=== PATIENT | female | born 1985 | race African-American/Black ===

== ENCOUNTER 2018-09-28 13:08 | Inpatient (IN) ==
[2018-09-28] MEDS ORDERED: DUONEB (A & A) INH ONE ×2 (15:34→17:46)
[2018-09-28 15:49] LABS: BASO# 0.02 X1000 (0.0-0.2); BASO% 0.2 % (0.0-0.8); EOS# 0.12 X1000 (0.0-0.7); EOS% 1.1 % (0.0-10.0); HEMATOCRIT 39.6 % (37.0-47.0); HEMOGLOBIN 13.2 g/dL (12.0-16.0); IMM GRAN# 0.01 X1000 (0.0-0.04); IMM GRAN% 0.1 % (0.0-0.5); LYMPH# 1.47 X1000 (1.2-3.4); LYMPH% 13.7 % (20.5-51.1); MCH 31.4 PG (27-31); MCHC 33.3 g/dL (33-37); MCV 94.1 FL (81-99); MONO# 0.72 X1000 (0.11-0.59); MONO% 6.7 % (1.7-9.3); MPV 10.1 FL (7.4-10.4); NEUT# 8.37 X1000 (1.4-6.5); NEUT% 78.2 % (42.2-75.2); PLT 258 X1000 (130-400); RBC 4.21 XMIL (4.2-5.4); RDW 12.8 % (11.5-14.5); WBC 10.71 X1000 (4.8-10.8)
[2018-09-28 16:06] LABS: AGAP 11; ALBUMIN 4.1 g/dL (3.5-5.0); ALKALINE PHOSPHATASE 107 U/L (32-104); BUN 5 mg/dL (8-22); CALCIUM 8.8 mg/dL (8.8-10.2); CHLORIDE 98 mmol/L (98-107); COSMO 279; CREATININE 0.6 mg/dL (0.5-0.9); ESTIMATED GFR > 60; GLUCOSE 245 mg/dL (70-104); GOT 13 U/L (10-30); GPT 13 U/L (10-36); POTASSIUM 3.7 mmol/L (3.5-5.1); SODIUM 137 mmol/L (136-145); TCO2 28 mmol/L (25-35); TOTAL PROTEIN 7.2 g/dL (6.3-8.3)
--- NOTE | 2018-09-28 16:11 | Diag Imaging Result Doc PS360 ---
CHEST-2 VIEWS - 09/28/2018 INDICATION: cough COMPARISON: 05/17/2015 FINDINGS: The lungs are normally expanded and clear. Heart size and mediastinal contours are normal. No pneumothorax or pleural effusion. IMPRESSION: Negative exam. Electronically signed by Cale Pulido 09/28/2018 4:09 PM
--- NOTE | 2018-09-28 16:12 | Diag Imaging Result Doc PS360 ---
SINUSES SUE VIEW ONLY - 09/28/2018 INDICATION: cough TECHNIQUE: COMPARISON: None FINDINGS: The sinuses are clear. Mastoids are clear as well. IMPRESSION: Negative exam. Electronically signed by Cale Pulido 09/28/2018 4:10 PM
[2018-09-28 17:00] LABS: BLOOD TYPE ARTERIAL; SAMPLE BLOOD
[2018-09-28 17:01] LABS: BE 3.9 mmoll (-3.0-3.0); HCO3-(ACT) 27.7 mmoll (20.0-26.0); METHB 1.1 % (0.0-1.5); O2(CT) 17.3 mL/dL (15.0-23.0); PCO2(98.6) 42 mmHg (35-45); PO2(98.6) 55 mmHg (60-100); SAO2 91.7 % (95.0-100.0); THB 13.9 g/dL (11.5-17.4); pH(98.6) 7.44 (7.35-7.45)
[2018-09-28 17:03] LABS: ALLEN TEST YES; MODALITY ROOM AIR; O2HB 88.5 % (95.0-99.0)
[2018-09-28 17:50] LABS: INFLUENZA A NEGATIVE (NEGATIVE); INFLUENZA B NEGATIVE (NEGATIVE)
[2018-09-28 18:45] LABS: BILIRUBIN URINE NEGATIVE (NEGATIVE); BLOOD URINE NEGATIVE (NEGATIVE); KETONE URINE 1+(Small) mg/dL (NEGATIVE); LEUKOCYTES URINE TRACE (NEGATIVE); NITRITE URINE NEGATIVE (NEGATIVE); PH URINE 6.5; PROTEIN URINE TRACE mg/dL (NEGATIVE); SP GRAVITY URINE 1.015; UROBILINOGEN URINE 4 mg/dL
[2018-09-28 18:46] LABS: CLARITY SL. CLOUDY (CLEAR); COLOR YELLOW; URINE BACTERIA 1+ /HFP; URINE EPITHELIAL CELLS >10 /HPF (<10)
[2018-09-28 18:47] LABS: URINE CAST NONE SEEN /LPF; URINE CRYSTAL NONE SEEN /HPF; URINE SOURCE CLEAN CATCH; URINE WBC <10 /HPF (<10); URINE YEAST NONE SEEN /HPF
--- NOTE | 2018-09-28 18:58 | PROVIDER DOCUMENTATION ---
This chart was entered by Judi Arrieta Scribe, acting as scribe for Jin Copeland MD. HPI-General Adult - General Chief Complaint: Cold Symptoms Stated Complaint: BODY ACHE Time Seen by Provider: 09/28/18 15:32 Source: patient Allergies/Adverse Reactions: Patient Allergies Allergy/AdvReac Type Severity Reaction Status Date / Time Penicillins AdvReac RASH Verified 09/24/15 20:23 Home Medications: Home Medication List Medication Instructions Recorded Confirmed Last Taken Type Clindamycin [Cleocin] 150 mg PO Q6HR #30 capsule 01/28/16 Unknown Rx Sulfamethoxazole/Trimethoprim 1 each PO BID #14 tablet 01/28/16 Unknown Rx [Bactrim Ds Tablet] Metformin [Glucophage] 1,000 mg PO WBREAKFAST #30 tablet 10/07/16 Unknown Rx Nitrofurantoin [place]/Macrocryst 100 mg PO BID #14 capsule 10/07/16 Unknown Rx [Macrobid] Sulfamethoxazole/Trimethoprim 1 each PO BID #10 tablet 10/07/16 Unknown Rx [Bactrim Ds Tablet] - History of Present Illness -Gen Adult Nature of Presenting Problems: 32yof presents to ED cc cough w/green & yellow mucous production, fever, body aches, SOB and congestion for 3 days that is getting worse. Pt denies N/V/D. Pt has hx of DM. Pt is nontoxic in appearance. Location of Pain/Injury: reports: generalized Pain Radiation: reports: no radiation Quality of Pain: reports: aching, pressure Severity: reports: moderate Onset/Duration: reports: 3 days ago Timing: reports: still present, constant, changing over time Context/Activities at Onset: reports: light activity Modifying Factors: improves with: nothing Associated Symptoms: reports: cough, fever/chills, muscle aches, sinus kodi estion/drainage, shortness of breath Similar Symptoms Previously?: No Recently seen or treated by another doctor?: No Review of Systems - Adult - REVIEW OF SYSTEMS - ADULT Constitutional: reports: see HPI, chills, fever, fatique. denies: weight gain, weight loss Eyes: reports: no symptoms reported Ears, Nose, Mouth & Throat: reports: see HPI, sinus problem, hoarseness. denies: ear pain, throat pain Cardiovascular: reports: no symptoms reported Respiratory: reports: see HPI, cough, shortness of breath, wheezing Gastrointestinal: reports: no symptoms reported Genitourinary: reports: no symptoms reported Musculoskeletal: reports: no symptoms reported Integumentary: reports: no symptoms reported Neurological: reports: no symptoms reported Psychiatric: reports: no symptoms reported Endocrine: reports: no symptoms reported Hematologic/Lymphatic: reports: no symptoms reported Allergic/Immunologic: reports: no symptoms reported All Other Systems: Reviewed and Negative Past History - Adult - PAST MEDICAL HISTORY-ADULT Review of Records: reports: Nursing Assessment Review, Medications Reviewed, Social history reviewed & non-contributory. Major Childhood Illnesses: reports: denies history Cardiovascular: reports: HTN Respiratory: reports: denies history Gastrointestinal: reports: denies history Obstetrical/Gynecological: reports: denies history Genitourinary: reports: denies history Musculoskeletal: reports: denies history Neurological: reports: denies history Endocrine/Immune: reports: Diabetes Other Conditions: reports: denies history - PRIOR SURGERIES/PROCEDURES Surgical/Procedure History: reports: - PRIOR HOSPITALIZATIONS Prior Hospitalizations: reports: none - IMMUNIZATION STATUS Childhood Immunizations: See Nurse Assessment Flu Vaccine: See Nurse Assessment - FAMILY HISTORY Family History: reviewed, not pertinent Physical Exam-General - PHYSICAL EXAM-ADULT Initial Vital Signs Reviewed: Yes - CONSTITUTIONAL General Appearance: appears well, alert, no apparent distress, obese. negative: anxious, combative - EYES Eyes: PERRL/EOMI, pink conjunctivae. negative: meningismus, pale conjunctivae, photophobia - HEAD, EARS, NOSE, MOUTH & THROAT HENMT: normocephalic/atraumatic, moist mucous membranes, TMs normal, pharynx normal, frontal tenderness. negative: angioedema, dental decay, hearing deficit, pharyngeal erythema, tonsillar exudate - NECK Neck: non-tender, full range of motion, supple, normal inspection. negative: C- spine tenderness - RESPIRATORY Respiratory: chest non-tender, no pleuratic chest pain, no respiratory distress, no accessory muscle use, decreased breath sounds (bilaterally at bases), wheezing (bilaterally). negative: lungs clear, normal breath sounds, crackles, rales, rhonchi, stridor - CARDIOVASCULAR Cardiovascular: normal peripheral pulses, regular rate, rhythm, no edema, no gallop, no JVD, no murmur. negative: bradycardia, tachycardia - GASTROINTESTINAL (ABDOMEN) Abdominal Exam: normal bowel sounds, non tender, soft, no organomegaly, no pulsatile mass. negative: distended, guarding, rigid, rebound, tenderness, hernia, mass - LYMPHATIC Lymphatic: no adenopathy. negative: enlargement, striations, streaking - MUSCULOSKELETAL Back Exam: normal inspection, no CVA tenderness, no vertebral tenderness. negative: ecchymosis, kyphosis, swelling Extremity: normal range of motion, non-tender, normal gait, normal inspection, no pedal edema, no calf tenderness, normal capillary refill, pelvis stable. negative: deformity, erythema, swelling - SKIN Integumentary: normal turgor, warm/dry, other (acanthrosis). negative: cyanosis, diaphoresis, erythema, jaundice - NEUROLOGIC Neurologic: radiation protection specialist II-XII nml as tested, grossly normal, no motor/sensory deficits. negative: facial droop, focal weakness - PSYCHIATRIC Psych/Mental Status: normal mood/affect, normal thought content, normal thought process, oriented x 3. negative: disoriented x 3, anxious, disheveled, d epressed affect Progress - PLAN OF CARE/RESULTS Progress/Plan/Lab Results: Vital Signs - 8 hr 09/28/18 13:37 Temperature 99.4 F Pulse Rate 105 H Respiratory Rate 20 Blood Pressure 120/80 O2 Sat by Pulse Oximetry 95 Result Diagrams: 09/28/18 13:35 09/28/18 13:35 - XRAY 1 XRAY Study: other (water's view) Impression: See EMR Report (IMPRESSION: Negative exam. Electronically signed by Cale Pulido 09/28/2018 4:10 PM) 2 XRAY: Bilateral XRAY Study: Chest Impression: See EMR Report (IMPRESSION: Negative exam. Electronically signed by Cale Pulido 09/28/2018 4:09 PM) Departure - Departure Date of Disposition Decision: 09/28/18 Time of Disposition Decision: 18:49 DIAGNOSIS: Respiratory failure, Morbid obesity Disposition: ADMITTED INPATIENT 09 Certified Medical Emergency: Emergent Condition: Stable Additional Freetext Instructions: ED Follow Up Instructions: You have been treated by a care provider in the Emergency Department. These instructions are being provided to you so you can have an understanding of how to care for yourself upon discharge. Upon discharge from the Emergency Department, you are responsible for making arrangements for follow-up care by a physician of your choice. Take all prescribed medications as directed. Return to the Emergency Department immediately for any new or worsening symptoms. You may call the Physician Referral phone number at [phone] to obtain a list of Physicians who are taking new patients. Referrals and Follow-Ups: None,PCP [Primary Care Provider] - - Critical Care Note This patient required my direct & personal management of CC.: No Attestation - Physician/ ALESSIA Attestation Patient care was provided by Advanced Practice Provider:: No The physician spent face to face time with patient:: Yes Advanced Practice Provider documentation review:: Supervising physician onsite and consulted in the evaluation and care of this patient. The physician did have a face to face encounter with the patient. This chart was documented by the indicated scribe, (Judi Arrieta Scribe) and accurately reflects the services I performed and decisions made by me, Jin Copeland MD, as attested by the provider's signature.
[2018-09-28] MEDS ORDERED: ROCEPHIN 1 GM in NS 50 ML IV ONE (21:19)
[2018-09-28] MEDS ORDERED: DUONEB (A & A) INH PRN (23:17)
[2018-09-29] MEDS: TYLENOL PO PRN ×2 (00:03→18:22)
[2018-09-29] MEDS: SOLU-MEDROL IV SCH ×3 (00:03→21:11)
[2018-09-29] MEDS: ATROVENT NEB INH SCH ×6 (03:53→23:02)
[2018-09-29] MEDS ORDERED: DUONEB (A & A) INH SCH (04:00)
[2018-09-29] MEDS: HUMULIN R (PARKWAY) SUBQ SCH ×2 (05:28→07:22)
[2018-09-29] MEDS: ULTRAM PO PRN (05:32)
[2018-09-29 06:38] LABS: BE -6.7 mmoll (-3.0-3.0); BLOOD TYPE ARTERIAL; HCO3-(ACT) 19.7 mmoll (20.0-26.0); METHB 1.4 % (0.0-1.5); O2HB 95.4 % (95.0-99.0); PO2(98.6) 81 mmHg (60-100); SAMPLE BLOOD; SAO2 98.6 % (95.0-100.0); THB 13.4 g/dL (11.5-17.4)
[2018-09-29 06:43] LABS: ALLEN TEST YES; MODALITY CANNULA; PCO2(98.6) 56 mmHg (35-45)
[2018-09-29 06:57] LABS: BASO# 0.01 X1000 (0.0-0.2); BASO% 0.1 % (0.0-0.8); HEMATOCRIT 38.9 % (37.0-47.0); HEMOGLOBIN 12.7 g/dL (12.0-16.0); IMM GRAN# 0.02 X1000 (0.0-0.04); IMM GRAN% 0.1 % (0.0-0.5); LYMPH# 0.63 X1000 (1.2-3.4); LYMPH% 4.6 % (20.5-51.1); MCH 31.1 PG (27-31); MCHC 32.6 g/dL (33-37); MCV 95.1 FL (81-99); MONO# 0.14 X1000 (0.11-0.59); NEUT# 12.93 X1000 (1.4-6.5); NEUT% 94.2 % (42.2-75.2); PLT 252 X1000 (130-400); RBC 4.09 XMIL (4.2-5.4); RDW 12.9 % (11.5-14.5); WBC 13.73 X1000 (4.8-10.8)
[2018-09-29 07:27] LABS: AGAP 14; BUN 10 mg/dL (8-22); CALCIUM 9.1 mg/dL (8.8-10.2); CHLORIDE 98 mmol/L (98-107); COSMO 295; CREATININE 0.7 mg/dL (0.5-0.9); ESTIMATED GFR > 60; POTASSIUM 4.4 mmol/L (3.5-5.1); SODIUM 138 mmol/L (136-145); TCO2 26 mmol/L (25-35)
[2018-09-29 07:29] LABS: GLUCOSE 460 mg/dL (70-104)
[2018-09-29 07:38] LABS: LYMPHS 5 % (21-51); SEGS 95 % (42-75)
[2018-09-29] MEDS ORDERED: GLUCOPHAGE PO SCH (08:00)
[2018-09-29 09:40] LABS: HEMOGLOBIN A1C 10.5 % (4.8-6.0)
[2018-09-29] MEDS: ZITHROMAX PO SCH (09:57)
[2018-09-29] MEDS ORDERED: XOPENEX NEB INH SCH (10:00)
[2018-09-29] MEDS ORDERED: HUMULIN R (PARKWAY) IV ONE (11:04)
[2018-09-29] MEDS ORDERED: LANTUS INSULIN SUBQ SCH (11:15)
[2018-09-29] MEDS ORDERED: HUMULIN R (PARKWAY) SUBQ SCH (11:15)
[2018-09-29] MEDS: XOPENEX NEB INH SCH ×4 (11:19→23:02)
[2018-09-29] MEDS: MUCINEX PO SCH ×2 (11:25→21:10)
[2018-09-29 12:38] LABS: AGAP 14; BUN 9 mg/dL (8-22); CALCIUM 9.4 mg/dL (8.8-10.2); CHLORIDE 99 mmol/L (98-107); COSMO 288; CREATININE 0.6 mg/dL (0.5-0.9); ESTIMATED GFR > 60; GLUCOSE 370 mg/dL (70-104); POTASSIUM 3.8 mmol/L (3.5-5.1); SODIUM 137 mmol/L (136-145); TCO2 24 mmol/L (25-35)
--- NOTE | 2018-09-29 14:47 | HISTORY AND PHYSICAL ---
CHIEF COMPLAINT: Body aches and a cough. HISTORY OF PRESENT ILLNESS: This is a morbidly obese 32-year-old female with a history of noncompliance, diabetes mellitus, sleep apnea and hypertension. She presents to the emergency room complaining of 3 days of cough, congestion, and generalized body aches as well as sinus pressure. She states that over the last 36 hours, she developed some complicated production with green sputum, and she developed shortness of breath with activity as well as some orthopnea. On ABG, she was noted to have a PO2 of 55 on room air. The patient does have a history of diabetes mellitus, and has been told she had a high blood pressure in the past. She states that the last time she saw a doctor was probably 5 or 6 years ago. She did have an episode of incarceration over the last year and a half that extended over about 2 to 3 months period. Then, she stated blood sugars were initially in the 300s, but due to their strict diet that her blood sugars stayed in the 180 to 185 after about 2 weeks. She has not checked her blood sugar since that time. She is noted to have a hemoglobin A1c of 10.5. PAST MEDICAL HISTORY: 1. Diabetes mellitus. 2. Morbid obesity. 3. Sleep apnea. PAST SURGICAL HISTORY: . SOCIAL HISTORY: She smokes 2 to 3 cigarettes a week. She denies any illicit drug use. She does drink alcohol daily with the last drink being about 48 hours ago. ALLERGIES: Penicillin which caused a rash. MEDICATIONS: Home medications none. REVIEW OF SYSTEMS: Discussed with the patient with pertinent positives stated in HPI. She denied any syncope or dizziness, any chest pain or palpitations, any recent weight loss or weight gain, nausea, vomiting, diarrhea, constipation, black or bloody vomitus or stools, hematuria, dysuria, frequency, or urgency. PHYSICAL EXAMINATION: GENERAL: This is a 32-year-old morbidly obese female who is sitting up in the bed in mild distress. VITAL SIGNS: Blood pressure 149/77 with a heart rate of 98, respirations are 20 to 22, temperature is 98.4 degrees oral with O2 sats 97 to 98% on 2 L nasal cannula. HEENT: Eyes: Pupils are equal, round, and react to light. EOMs are intact. Sclerae are anicteric. Head is normocephalic, atraumatic. Mucous membranes are moist. NECK: Supple. Trachea midline. She has no JVD. CARDIOVASCULAR: Regular rate and rhythm, S1 and S2 appreciated. Calves are nontender bilateral. She has no lower extremity edema with peripheral pulses palpable x4 extremities. PULMONARY: Breath sounds with expiratory wheezes scattered throughout. Chest rales posterior respiration. Chest wall is nontender to palpation. GASTROINTESTINAL: Abdomen is large, soft, nontender, and nondistended with bowel sounds in all 4 quadrants. : She has no CVA or suprapubic tenderness. NEUROLOGIC: She is alert and oriented times three. SKIN: Warm and dry. LABORATORY DATA: 1. WBC is 13.7 with a hemoglobin of 12.7, hematocrit 38.9, and platelets 252,000. Sodium 138, potassium 4.4, BUN 10, creatinine 0.7 with a glucose that is ranging from 240 to 460. Hemoglobin A1c is 10.5. Urinalysis is essentially negative. Flu A and B are negative. ABG on room air, pH is 7.44 with pCO2 42, PO2 55, bicarb 27.7 with an Oxy hemoglobin of 88.5. Repeat ABGs on 2 L nasal cannula, pH is 7.22 with a pCO2 of 56, PO2 of 81, and bicarb of 19.7. 2. Chest x-ray revealed a negative exam. 3. Anders view x-ray. Sinuses are clear. Mastoids are clear. ASSESSMENT AND PLAN: 1. Leukocytosis. 2. Acute hypoxic respiratory failure. 3. Morbid obesity. 4. Diabetes mellitus type 2 with noncompliance. 5. Hypercapnic respiratory failure. PLAN: 1. Patient has been admitted to med/surg floor on telemetry, which we will continue. continue with supplemental oxygen. consult Commercial [employer]er incentive spirometer every 4 hours per Respiratory Therapy. Increase breathing treatments to q.4 hours with q.2 hours p.r.n. IV steroids. Mucinex 600 q.12 hours. metformin 1000 mg p.o. b.i.d. pattern blood glucose and sliding scale insulin. Rocephin along with azithromycin for antibiotic coverage, further antibiotics will be culture driven For DVT prophylaxis, Lovenox. consult dietitian for diabetes education. BMP and CBC daily. Further treatment pending hospital course. Plan has been discussed with Dr. Sweeney. Dictated by MOHIT Saab for Rasta Sweeney MD cc: MOHIT Saab MD [facility]
--- NOTE | 2018-09-29 17:47 | HISTORY AND PHYSICAL ---
SUBJECTIVE: Patient has no complaints. OBJECTIVE: Blood pressure 149/77, heart rate of 101, respiratory rate 16, temperature 98.4 degrees, 97% on 2 L.Cardiovascular: Regular rate and rhythm. Pulmonary: Bilateral breath sounds clear to auscultation. GASTROINTESTINAL: Soft, nontender, nondistended. Bowel sounds are positive. The patient came in with hyperglycemia, not feeling very well. Reportedly, she takes metformin for her diabetes, but HAS not been very well controlled. She also had some bronchitis. She was admitted for bronchitis, type 2 diabetes, hypercapnic respiratory failure. She is on the borderline requiring IV insulin as far as DKA. DIAGNOSTIC STUDIES: That being said, her carbon dioxide was low normal, her gap is normal, blood sugar is stable. DISPOSITION: Hopefully discharge soon, in the next 24 or 48 hours. I am going to decrease her steroids a little bit, just because of that burden there, but she will have to work on weight loss, and I think she may need insulin in addition to her metformin; obviously, that is not going to be able to control her currently. This is a [id number] encounter note with Olga Brownlee. cc: Rasta Sweeney MD
[2018-09-29] MEDS: NS 1,000 ML IV SCH (18:21)
[2018-09-29] MEDS: HUMULIN R (PARKWAY) 100 UNITS in NS 100 ML IV SCH (18:22)
[2018-09-29] MEDS ORDERED: NS 1,000 ML IV SCH (18:30)
[2018-09-29] MEDS: ROCEPHIN 1 GM in NS 50 ML IV SCH (21:11)
[2018-09-30] MEDS: SOLU-MEDROL IV SCH ×3 (00:30→22:29)
[2018-09-30] MEDS: NS 1,000 ML IV SCH (02:00)
[2018-09-30] MEDS: TYLENOL PO PRN (03:00)
[2018-09-30] MEDS: ATROVENT NEB INH SCH ×6 (03:23→22:33)
[2018-09-30] MEDS: XOPENEX NEB INH SCH ×6 (03:23→22:33)
[2018-09-30] MEDS: HUMULIN R (PARKWAY) 100 UNITS in NS 100 ML IV SCH (05:43)
[2018-09-30 06:18] LABS: BASO% 0.1 % (0.0-0.8); HEMATOCRIT 36.1 % (37.0-47.0); IMM GRAN% 0.3 % (0.0-0.5); MCH 31.4 PG (27-31); MCHC 33.2 g/dL (33-37); MCV 94.5 FL (81-99); MPV 10.4 FL (7.4-10.4); NEUT% 87.6 % (42.2-75.2); PLT 270 X1000 (130-400); RBC 3.82 XMIL (4.2-5.4); WBC 18.44 X1000 (4.8-10.8)
[2018-09-30 06:19] LABS: BASO# 0.01 X1000 (0.0-0.2); IMM GRAN# 0.06 X1000 (0.0-0.04); LYMPH# 0.92 X1000 (1.2-3.4); MONO# 1.29 X1000 (0.11-0.59); NEUT# 16.16 X1000 (1.4-6.5)
[2018-09-30 06:29] LABS: AGAP 11; BUN 9 mg/dL (8-22); CALCIUM 9.1 mg/dL (8.8-10.2); CHLORIDE 101 mmol/L (98-107); COSMO 277; CREATININE 0.4 mg/dL (0.5-0.9); ESTIMATED GFR > 60; GLUCOSE 137 mg/dL (70-104); POTASSIUM 3.7 mmol/L (3.5-5.1); SODIUM 138 mmol/L (136-145); TCO2 26 mmol/L (25-35)
[2018-09-30 08:43] LABS: LYMPHS 6 % (21-51); MONO 5 % (1-9); SEGS 89 % (42-75)
[2018-09-30] MEDS: ZITHROMAX PO SCH (09:29)
[2018-09-30] MEDS: LOVENOX SUBQ SCH (09:29)
[2018-09-30] MEDS: ULTRAM PO PRN ×2 (09:30→20:26)
[2018-09-30] MEDS: MUCINEX PO SCH ×2 (09:30→20:26)
[2018-09-30] MEDS: JANUVIA PO SCH (09:32)
[2018-09-30] MEDS: HUMALOG (PARKWAY) SUBQ SCH ×3 (11:38→20:27)
[2018-09-30] MEDS ORDERED: TESSALON PO SCH (13:00)
[2018-09-30] MEDS: ROCEPHIN 1 GM in NS 50 ML IV SCH (20:27)
[2018-09-30] MEDS: TESSALON PO SCH (20:27)
--- NOTE | 2018-09-30 21:33 | PROGRESS NOTE ---
DATE: 09/30/2018 SUBJECTIVE: Patient notes overall she is feeling better. Denies any fevers or chills. PHYSICAL EXAMINATION: Vital Signs: Reviewed. General: She is awake, alert, oriented, morbidly obese female who is in no respiratory distress. HEENT: Normocephalic. Neck: Supple. Cardiovascular: Regular rate. Chest: Clear, nonlabored. Abdomen: Soft, nondistended. Extremities: Moves all extremities. ASSESSMENT: 1. Diabetes with hyperglycemia with an A1c of 10.1. We will continue to adjust her medications. We will add Januvia. Apparently, the patient has not been taking her metformin at home. We will restart this. 2. Leukocytosis with a white count of 18. We will follow. PLAN: Overall, the patient is better. We will continue to follow. cc: Celestine Bernal MD
[2018-10-01] MEDS: ULTRAM PO PRN ×2 (02:01→11:25)
[2018-10-01] MEDS: XOPENEX NEB INH SCH ×6 (03:23→23:09)
[2018-10-01] MEDS: ATROVENT NEB INH SCH ×6 (03:23→23:09)
[2018-10-01] MEDS: TESSALON PO SCH ×3 (05:24→20:56)
[2018-10-01] MEDS: HUMALOG (PARKWAY) SUBQ SCH ×5 (06:02→20:57)
[2018-10-01 06:10] LABS: HEMOGLOBIN 11.4 g/dL (12.0-16.0); RBC 3.62 XMIL (4.2-5.4); WBC 11.53 X1000 (4.8-10.8)
[2018-10-01 06:11] LABS: BASO# 0.01 X1000 (0.0-0.2); BASO% 0.1 % (0.0-0.8); EOS# 0.01 X1000 (0.0-0.7); EOS% 0.1 % (0.0-10.0); IMM GRAN# 0.02 X1000 (0.0-0.04); IMM GRAN% 0.2 % (0.0-0.5); LYMPH# 0.76 X1000 (1.2-3.4); LYMPH% 6.6 % (20.5-51.1); MCH 31.5 PG (27-31); MCHC 32.6 g/dL (33-37); MCV 96.7 FL (81-99); MONO# 0.46 X1000 (0.11-0.59); NEUT# 10.27 X1000 (1.4-6.5); PLT 264 X1000 (130-400); RDW 13.1 % (11.5-14.5)
[2018-10-01 06:30] LABS: AGAP 12; CHLORIDE 99 mmol/L (98-107); POTASSIUM 4.6 mmol/L (3.5-5.1); SODIUM 136 mmol/L (136-145); TCO2 26 mmol/L (25-35)
[2018-10-01 06:31] LABS: BUN 14 mg/dL (8-22); CALCIUM 8.5 mg/dL (8.8-10.2); COSMO 290; CREATININE 0.6 mg/dL (0.5-0.9); ESTIMATED GFR > 60; GLUCOSE 421 mg/dL (70-104)
--- NOTE | 2018-10-01 07:54 | Diag Imaging Result Doc PS360 ---
CHEST-2 VIEWS - 10/01/2018 INDICATION: hypoxia COMPARISON: None FINDINGS: The lungs are normally expanded and clear. Heart size and mediastinal contours are normal. No pneumothorax or pleural effusion. IMPRESSION: Negative exam. Electronically signed by Cale Pulido 10/01/2018 7:51 AM
[2018-10-01] MEDS: JANUVIA PO SCH (08:19)
[2018-10-01] MEDS: MUCINEX PO SCH ×2 (08:19→20:57)
[2018-10-01] MEDS: LOVENOX SUBQ SCH (08:20)
[2018-10-01] MEDS: ZITHROMAX PO SCH (08:20)
[2018-10-01] MEDS ORDERED: LANTUS INSULIN SUBQ SCH (09:00)
[2018-10-01 09:18] LABS: LYMPHS 6 % (21-51); MONO 4 % (1-9); SEGS 90 % (42-75)
[2018-10-01] MEDS: SOLU-MEDROL IV SCH (11:24)
[2018-10-01] MEDS: TOPAMAX PO SCH (13:46)
[2018-10-01] MEDS ORDERED: LANTUS INSULIN SUBQ ONE (17:24)
[2018-10-01] MEDS: TUMS EXTRA STRENGTH PO PRN (18:37)
--- NOTE | 2018-10-01 20:07 | PROGRESS NOTE ---
DATE: 10/01/2018 SUBJECTIVE: Patient denies any new complaints, although states she is having a migraine. States this is chronic for her. Denies any fevers. States that she is feeling like she can eat and drink a little bit better today. OBJECTIVE: Vital Signs: Temperature 98 degrees, pulse 84, respiratory rate 18, BP 138/95. General: Patient is awake, obese female who currently is in no respiratory distress. She is sitting up in the bed. HEENT: Normocephalic. Neck: Supple. Cardiovascular: Regular rate. No murmurs. Chest: Clear, nonlabored. Abdomen: Soft, obese, nondistended, nontender. Extremities: Moves all extremities. No edema. Neurologic: No focal changes. ASSESSMENT: 1. Abdominal pain. 2. Migraine. We will add Topamax. 3. Leukocytosis, improved. White count is down from 18 to 11. 4. Diabetes, with poor home control with an A1c at 10.5 and current hyperglycemia. We are going to add Lantus to her Januvia and metformin. 5. Hypercapnic respiratory failure, resolved. PLAN: Will continue patient in the hospital, transfer her to the floor, adjust her insulin control. Further orders as needed. cc: Celestine Bernal MD
[2018-10-01] MEDS: ROCEPHIN 1 GM in NS 50 ML IV SCH (20:56)
[2018-10-02] MEDS: XOPENEX NEB INH SCH ×6 (03:19→23:12)
[2018-10-02] MEDS: ATROVENT NEB INH SCH ×6 (03:19→23:12)
[2018-10-02] MEDS: ULTRAM PO PRN ×3 (03:38→21:11)
[2018-10-02] MEDS: TESSALON PO SCH ×3 (06:34→21:11)
[2018-10-02] MEDS: HUMALOG (PARKWAY) SUBQ SCH ×4 (06:35→21:12)
[2018-10-02 06:39] LABS: BASO# 0.01 X1000 (0.0-0.2); BASO% 0.1 % (0.0-0.8); EOS# 0.06 X1000 (0.0-0.7); EOS% 0.6 % (0.0-10.0); HEMATOCRIT 35.2 % (37.0-47.0); HEMOGLOBIN 11.4 g/dL (12.0-16.0); IMM GRAN# 0.03 X1000 (0.0-0.04); IMM GRAN% 0.3 % (0.0-0.5); LYMPH# 2.69 X1000 (1.2-3.4); LYMPH% 26.4 % (20.5-51.1); MCHC 32.4 g/dL (33-37); MCV 95.7 FL (81-99); MONO# 1.07 X1000 (0.11-0.59); MONO% 10.5 % (1.7-9.3); MPV 10.5 FL (7.4-10.4); NEUT# 6.33 X1000 (1.4-6.5); NEUT% 62.1 % (42.2-75.2); PLT 289 X1000 (130-400); RBC 3.68 XMIL (4.2-5.4); WBC 10.19 X1000 (4.8-10.8)
[2018-10-02 06:48] LABS: AGAP 10; BUN 13 mg/dL (8-22); CALCIUM 8.7 mg/dL (8.8-10.2); CHLORIDE 96 mmol/L (98-107); COSMO 281; CREATININE 0.6 mg/dL (0.5-0.9); ESTIMATED GFR > 60; GLUCOSE 288 mg/dL (70-104); POTASSIUM 3.9 mmol/L (3.5-5.1); SODIUM 135 mmol/L (136-145); TCO2 29 mmol/L (25-35)
[2018-10-02] MEDS: TOPAMAX PO SCH (10:59)
[2018-10-02] MEDS: LOVENOX SUBQ SCH (11:00)
[2018-10-02] MEDS: ZITHROMAX PO SCH (11:00)
[2018-10-02] MEDS: MIRALAX PO PRN (11:00)
[2018-10-02] MEDS: JANUVIA PO SCH (11:00)
[2018-10-02] MEDS: TUMS EXTRA STRENGTH PO PRN ×2 (11:00→21:11)
[2018-10-02] MEDS: MUCINEX PO SCH ×2 (11:00→21:11)
[2018-10-02] MEDS: LANTUS INSULIN SUBQ SCH (11:01)
[2018-10-02] MEDS ORDERED: SOLU-MEDROL IV SCH (11:30)
[2018-10-02] MEDS ORDERED: AYR NASAL SPRAY NAS PRN (14:08)
--- NOTE | 2018-10-02 20:10 | PROGRESS NOTE ---
DATE: 10/02/2018 SUBJECTIVE: The patient notes that she is feeling a little bit better. She is still having some nausea, not eating well. Denies any fevers or chills. OBJECTIVE: Temperature 98 degrees, pulse 84, respiratory rate 18, BP 139/95.General: Patient is a morbidly obese female, who is currently in no respiratory distress. She is very pleasant to talk with. HEENT: Normocephalic. Neck: Supple. Cardiovascular: Regular rate. No murmurs. Chest: Clear, nonlabored. Abdomen: Soft, nondistended. Extremities: Moves all extremities. ASSESSMENT: 1. Diabetes. Blood sugars are still elevated. She has not been very compliant at home. We are going to try to get a little better control before we discharge her. I will continue her on Lantus, Januvia, and metformin. We will increase her Lantus. Her A1c at home was 10.5. 2. Leukocytosis, improved. 3. Acute hypoxic respiratory failure. Appears to be resolved. PLAN: We will continue patient in the hospital today. Continue sliding scale insulin. We will stop her Solu-Medrol and will follow. Hopefully, if her blood sugars are better, she can discharge home tomorrow. cc: Celestine Bernal MD
[2018-10-02] MEDS: ROCEPHIN 1 GM in NS 50 ML IV SCH (21:11)
[2018-10-03] MEDS: ATROVENT NEB INH SCH ×6 (02:54→22:54)
[2018-10-03] MEDS: XOPENEX NEB INH SCH ×6 (02:54→22:54)
[2018-10-03] MEDS: HUMALOG (PARKWAY) SUBQ SCH ×4 (06:19→21:41)
[2018-10-03] MEDS: TESSALON PO SCH ×3 (06:19→20:49)
[2018-10-03] MEDS: LOVENOX SUBQ SCH (09:28)
[2018-10-03] MEDS: LANTUS INSULIN SUBQ SCH (09:28)
[2018-10-03] MEDS: MIRALAX PO PRN (09:28)
[2018-10-03] MEDS: TOPAMAX PO SCH (09:29)
[2018-10-03] MEDS: JANUVIA PO SCH (09:29)
[2018-10-03] MEDS: ZITHROMAX PO SCH (09:29)
[2018-10-03] MEDS: MUCINEX PO SCH ×2 (09:29→20:49)
[2018-10-03] MEDS ORDERED: GOLYTELY PO ONE (10:00)
[2018-10-03] MEDS: ULTRAM PO PRN (16:26)
[2018-10-03] MEDS: ROCEPHIN 1 GM in NS 50 ML IV SCH (20:50)
--- NOTE | 2018-10-03 21:01 | PROGRESS NOTE ---
DATE: 10/03/2018 SUBJECTIVE: Patient notes that she is feeling a little bit better. Still having headaches. Still having some nausea and abdominal pain. Has not really been out of bed. PHYSICAL EXAMINATION: Vital Signs: Reviewed. She is awake, alert, oriented. She is in no respiratory distress. Blood pressure is stable, heart rate 80s. She is afebrile. HEENT: Normocephalic. Neck: Supple. Cardiovascular: Regular rate. Chest: Clear, nonlabored, although decreased breath sounds secondary to body habitus. Abdomen: Soft, obese, nondistended, diffusely, but minimally tender. Extremities: Moves all extremities. No edema. ASSESSMENT: 1. Diabetes. Blood sugars are still elevated. We are going to add Januvia. 2. Migraines. She is on Topamax. 3. Leukocytosis. 4. Dyspnea. PLAN: If her blood sugars can get a little better controlled, we hopefully can discharge her home in the morning. cc: Celestine Bernal MD
[2018-10-04] MEDS: ATROVENT NEB INH SCH ×3 (03:19→17:43)
[2018-10-04] MEDS: XOPENEX NEB INH SCH ×3 (03:19→17:44)
[2018-10-04] MEDS: TESSALON PO SCH (06:24)
[2018-10-04] MEDS: HUMALOG (PARKWAY) SUBQ SCH (06:24)
[2018-10-04] MEDS: LANTUS INSULIN SUBQ SCH (10:05)
[2018-10-04] MEDS: LOVENOX SUBQ SCH (10:05)
[2018-10-04] MEDS: ZITHROMAX PO SCH (10:06)
[2018-10-04] MEDS: JANUVIA PO SCH (10:07)
[2018-10-04] MEDS: TOPAMAX PO SCH (10:07)
[2018-10-04] MEDS: MUCINEX PO SCH (10:08)
[2018-10-04] MEDS: ULTRAM PO PRN (10:35)
[2018-10-04 12:08] VITALS: BP 136/82
--- NOTE | 2018-10-04 19:22 | DISCHARGE SUMMARY ---
ADMISSION DATE: 09/28/2018 DISCHARGE DATE: 10/04/2018 DISCHARGE DIAGNOSES: 1. Chronic migraines, currently on Topamax and tolerating well. 2. Diabetes. Blood sugars are improving on Januvia, metformin, and Lantus 5 units. 3. Morbid obesity. CONSULTATIONS: None. PROCEDURES: None. BRIEF HOSPITAL COURSE: The patient was admitted to the hospital with elevated blood sugars. Her home A1c is 10.5. She was placed on her home metformin which she ultimately admitted that she had not been taking. We added Januvia and then added Lantus. Her blood sugars on discharge were in the low 100s to mid 200s. Thankfully, overall she continued to improve. She was having difficulties with migraines. Notes that she has chronic migraines. We added Topamax and this seems to be improving her situation. DISPOSITION: Discussed with the patient on discharge a diabetic diet, exercise, and following up outpatient with her primary care. We will continue Lantus 5 units daily, Januvia 100, and metformin 500 twice daily. TIME SPENT: Greater than 30 minutes was spent in total care. cc: Celestine Bernal MD
== END 2018-10-04 14:47 | disposition home or self-care (01) | DRG 202 ==
LOC: P.ED 13:08 → SUATTDRO 20:49 → P.MEDSURG 20:49 → P.ICU 09-29 17:14 → P.MEDSURG 10-01 11:39
PROVIDERS: ATTEND Family Medicine
CPT/HCPCS: 70210; 71020; 71046; 80048; 80053; 81001; 81025; 82805; 82948; 83036; 83880; 85025; 87040; 87088; 87275; 87276; 87804; 94640; 94761; 94799; 99285; A9270; J0696; J1650; J1815; J2920; J2930; J7030; XXXXX